=== PATIENT | male | born 1945 | race Hispanic/Latino ===

== ENCOUNTER → 2017-05-07 | Day surgery (SDC) | payer MEDICARE, BC ==
[2017-04-15 12:28] LABS: BASOPHILS % 0.6 % (0.0-1.0); EOSINOPHILS # (AUTO) 0.1 (0.0-0.4); EOSINOPHILS % 1.1 % (0.0-6.0); HEMATOCRIT 41.3 % (38.2-49.6); HEMOGLOBIN 13.8 g/dL (14.0-18.0); LYMPHOCYTES # (AUTO) 2.5 (1.0-3.2); LYMPHOCYTES % 39.4 % (18.0-39.1); MEAN CORPUSCULAR HEMOGLOBIN 29.9 pg (28-32); MEAN CORPUSCULAR HGB CONC 33.4 g/dL (31-35); MEAN CORPUSCULAR VOLUME 89.6 fL (81-99); MONOCYTES # (AUTO) 0.4 (0.2-0.8); MONOCYTES % 6.4 % (4.4-11.3); NEUTROPHILS # (AUTO) 3.4 (2.1-6.9); NEUTROPHILS % 52.3 % (38.7-80.0); PLATELET COUNT 245 x10e3/uL (140-360); RED BLOOD COUNT 4.61 x10e6/uL (4.3-5.7); RED CELL DISTRIBUTION WIDTH 13.3 % (11.7-14.4)
[~2017-05-07] MED LIST: FAMOTIDINE20 MG PO; FENTANYL CITRATE/PF 100MCG/2 ML INJ ONE; LIDOCAINE HCL 2% LOCAL INJ 5 ML SDV VIAL INJ ONE; MIDAZOLAM HCL 2 MG/2 ML VIAL ONE; OTC COUGH PO; PROPOFOL IV EMULSION 10 MG/ML 50 ML VIAL ONE; VIT D PO; Z.0.NEXIUM40 MG PO
== END | disposition home or self-care (01) ==
LOC: OR 09:56
PROVIDERS: ATTEND Internal Medicine Gastroenterology
DX: Z12.11 Encounter for screening for malignant neoplasm of colon (principal); D12.4 Benign neoplasm of descending colon; K64.2 Third degree hemorrhoids; K21.9 Gastro-esophageal reflux disease without esophagitis; E78.5 Hyperlipidemia, unspecified; R03.0 Elevated blood-pressure reading, without diagnosis of hypertension; Z01.810 Encounter for preprocedural cardiovascular examination; Z01.812 Encounter for preprocedural laboratory examination
CPT/HCPCS: 36415; 45384; 85025; 88305; 93005; J2001; J2250

== ENCOUNTER → 2018-01-21 | Day surgery (SDC) | payer MEDICARE, BC ==
[~2018-01-21] MED LIST changes: -LIDOCAINE HCL 2% LOCAL INJ 5 ML SDV VIAL INJ ONE
[2018-01-21 11:05] VITALS: BP 114/66
--- OUTSIDE RECORDS SUMMARY | 2018-01-21 14:33 | XMS REPORT ---
Author Author Doug Hussein [facility] eClinicalWorks Address Unknown Phone Unavailable Care Team Providers Care Production Line Manager Name Role Phone Doug Hussein CP Unavailable Allergies, Adverse Reactions, Alerts Substance Reaction Event Type N.K.D.A. 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 Active Problem Cardiomyopathy, unspecified type I42.9 Active Assessment GERD (gastroesophageal reflux disease) K21.9 Active Assessment Allergic sinusitis J30.9 Active Assessment Cough R05 Active Medications Medication Code System Code Instructions Start Date End Date Status Dosage Propranolol HCl ND 60621505874 20 mg Orally Twice a day July 22, 2017 Active 1 tablet Aspirin 81 mg Tab NDC 0 Active not defined Nexium ND 77126748421 40 MG Orally Once a day Active 1 capsule Pepcid ND 88144584102 40 MG Active TAKE 1 TABLET BY MOUTH 2 TIMES A DAY AT BEDTIME Medrol (Trey) NDC 0 4 mg Orally as directed October 18, 2017 October 24, 2017 Active as directed Crestor ND 05420090098 40 mg Orally Once a day Active 1 tablet Delsym [facility] [address]-87 30 MG/5ML Orally as needed (prn) Active 10 ml as needed Robitussin 12 Hour Cough NDC 81328160874 30 MG/5ML Orally every 12 hrs Active 10 ml as needed Tessalon Per[place] ND 25230096778 100 mg Orally Three times a day October 18, 2017 October 28, 2017 Active 1 capsule as needed Vital Signs Date/Time: October 18, 2017 BMI 21.47 Index Weight 137.1 lbs Height 67.0 in Temperature 99.0 F Cardiac Monitoring Heart Rate 85 /min Blood Pressure Diastolic 70 mm Hg Blood Pressure Systolic 121 mm Hg Results Name Result Date Reference Range Unit Abnormality Flag Sinus paranasal series Chest 2 views Summary Purpose eClinicalWorks Submission
--- OUTSIDE RECORDS SUMMARY | 2018-01-21 14:33 | XMS REPORT ---
Author Author Doug Hussein [facility] eClinicalWorks Address Unknown Phone Unavailable Care Team Providers Care Outside Salesman Name Role Phone Doug Hussein CP Unavailable Allergies No Known Allergies Problems Problem Type Condition Code Onset Dates Condition Status Problem GERD (gastroesophageal reflux disease) K21.9 Active Problem Occlusion and stenosis of unspecified carotid artery I65.29 Active Problem Other and unspecified hyperlipidemia E78.5 Active Problem Benign essential hypertension I10 Active Medications Medication Code System Code Instructions Start Date End Date Status Dosage Nexium [facility] [address]-22 40 MG Orally Once a day Active 1 capsule Results No Known Results Summary Purpose eClinicalWorks Submission
--- OUTSIDE RECORDS SUMMARY | 2018-01-21 14:33 | XMS REPORT ---
Author Author Doug Hussein Organization eClinicalWorks Address Unknown Phone Unavailable Care Team Providers Care Wastewater Project Manager Name Role Phone Doug Hussein CP Unavailable Allergies No Known Allergies Problems Problem Type Condition Code Onset Dates Condition Status Problem Tremor of right hand R25.1 Active Problem Other and unspecified hyperlipidemia E78.5 Active Problem Cardiomyopathy, unspecified type I42.9 Active Problem Benign essential hypertension I10 Active Assessment Cardiomyopathy, unspecified type I42.9 Active Problem GERD (gastroesophageal reflux disease) K21.9 Active Problem Occlusion and stenosis of unspecified carotid artery I65.29 Active Medications No Known Medications Results No Known Results Summary Purpose eClinicalWorks Submission
--- OUTSIDE RECORDS SUMMARY | 2018-01-21 14:33 | XMS REPORT ---
Author Author Doug Hussein Organization eClinicalWorks Address Unknown Phone Unavailable Care Team Providers Care Ophthalmic Medical Technician Name Role Phone Doug Hussein CP Unavailable Allergies No Known Allergies Problems Problem Type Condition Code Onset Dates Condition Status Assessment Occlusion and stenosis of bilateral carotid arteries I65.23 Active Problem Cardiomyopathy, unspecified type I42.9 Active Problem Tremor of right hand R25.1 Active Problem Occlusion and stenosis of bilateral carotid arteries I65.23 Active Problem Occlusion and stenosis of unspecified carotid artery I65.29 Active Problem Benign essential hypertension I10 Active Problem Other and unspecified hyperlipidemia E78.5 Active Problem GERD (gastroesophageal reflux disease) K21.9 Active Medications Medication Code System Code Instructions Start Date End Date Status Dosage Aspirin 81 mg Tab NDC 0 Active not defined Nexium ND 11804896439 40 MG Orally Once a day Active 1 capsule Pepcid ND 93720928626 40 MG Active TAKE 1 TABLET BY MOUTH 2 TIMES A DAY AT BEDTIME Crestor ND 54207521344 40 mg Orally Once a day Active 1 tablet Results No Known Results Summary Purpose eClinicalWorks Submission
--- OUTSIDE RECORDS SUMMARY | 2018-01-21 14:33 | XMS REPORT ---
Author Author Doug Hussein Organization eClinicalWorks Address Unknown Phone Unavailable Care Team Providers Care Irrigation Pump Installer Name Role Phone Doug Hussein CP Unavailable Allergies, Adverse Reactions, Alerts Substance Reaction Event Type N.K.D.A. Info Not Available Non Drug Allergy Encounters Encounter Location Date Unknown [facility] August 20, 2014 ANNUAL PHYSICAL [facility] August 17, 2014 Unknown [facility] August 25, 2014 ECHO [facility] Feb 02, 2014 CAROTID DOPPLER [facility] Feb 09, 2014 AAA SCREEEN [facility] Feb 16, 2014 Problems Problem Type Condition ICD-9 Code Onset Dates Condition Status Problem Pure hypercholesterolemia 272.0 Active Problem Hyperlipidemia 272.4 Active Problem Essential hypertension 401.9 Active Assessment GERD (gastroesophageal reflux disease) 530.81 Active Assessment Essential hypertension 401.9 Active Assessment Pure hypercholesterolemia 272.0 Active Medications Medication Code System Code Instructions Start Date End Date Status Dosage Nexium [facility] [address]-87 40 MG Orally Once a day Active 1 capsule Crestor [facility] [address]-85 40 mg Orally Once a day Active 1 tablet [facility] [address]-13 40 mg Orally twice a day (bid) August 17, 2014 Active 1 tablet at bedtime Aspirin 81 mg Tab Unknown 0 Active Unknown Lisinopril [facility] [address]-28 5 MG Orally Once a day August 17, 2014 Active 1 tablet Social History Social History Element Qualifiers Date Reported Tobacco Use: . Are you a: former smoker, How much do you smoke? Less than half of a pack per day, Pack Years 100, What year did you quit? 2004 August 17, 2014 Use of recreational / street drugs? . Answer: No August 17, 2014 Marital Status: . August 17, 2014 Do you drink alcohol? . Status: Yes, Type: Beer, How Often? Socially, Quantity: 1 August 17, 2014 Vital Signs Date/Time: August 17, 2014 Weight 147.9 lbs Height 67.0 in Temperature 98.1 F Cardiac Monitoring Heart Rate 71 /min Blood Pressure Diastolic 73 mm Hg Blood Pressure Systolic 150 mm Hg Results CBC w/ Auto Diff and Platelet MPV(-7.4-10.4 fl) 10.3 Hgb(-14.0-18.0 g/dL) 15.2 Hct(-42.0-54.0 %) 45.9 MCV(-80.0-94.0 fl) 92.8 MCH(-27.0-31.0 pg) 30.7 MCHC(-32.0-36.0 g/dL) 33.0 RDW(-11.5-14.5 %) 15.1 Platelet(-133-450 K/CMM) 129 WBC(-3.7-10.4 K/CMM) 6.5 RBC(-4.70-6.10 M/CMM) 4.94 Auto Diff Basophils(-0.0-1.0 %) 0.5 Eosinophils(-0.0-4.0 %) 1.0 Lymphocytes #(-1.0-5.5 K/CMM) 2.5 Segs-Bands #(-1.5-8.1 K/CMM) 3.6 Segs(-45.0-75.0 %) 54.3 Lymphocytes(-20.0-40.0 %) 38.6 Monocytes(-2.0-12.0 %) 5.6 Basophils #(-0.0-0.2 K/CMM) 0.0 Monocytes #(-0.0-0.8 K/CMM) 0.4 Eosinophils #(-0.0-0.5 K/CMM) 0.1 CMP (Comprehensive Metabolic Panel) ALT(-0-65 U/L) 29 Calcium Lvl(-8.5-10.5 mg/dL) 9.6 Alk Phos(-39-136 U/L) 83 AST(-0-37 U/L) 22 B/C Ratio(-6-25 ) 12 BUN(-7-22 mg/dL) 13 eGFR(- mL/min/1.73m2) 69 Creatinine Lvl(-0.5-1.4 mg/dL) 1.1 Glucose Lvl(-70-99 mg/dL) 89 AGAP(-10.0-20.0 mEq/L) 15.3 Albumin Lvl(-3.5-5.0 g/dL) 4.2 Total Protein(-6.4-8.4 g/dL) 8.3 A/G Ratio(-0.7-1.6 ) 1.0 Globulin(-2.0-4.0 g/dL) 4.1 Sodium Lvl(-135-145 mEq/L) 138 Potassium Lvl(-3.5-5.1 mEq/L) 4.3 Chloride Lvl(-95-109 mEq/L) 105 CO2(-24-32 mEq/L) 22 Lipid Panel w/calculated LDL LDL (Calculated)(-<=99 mg/dL) 177 CHD Risk(-4.00-7.30 ) 4.96 Trig(-<=149 mg/dL) 127 HDL(->=61 mg/dL) 51 Chol(-<=199 mg/dL) 253 Summary Purpose eClinicalWorks Submission
--- OUTSIDE RECORDS SUMMARY | 2018-01-21 14:33 | XMS REPORT ---
Author Author Doug Hussein Organization eClinicalWorks Address Unknown Phone Unavailable Care Team Providers Care Butter Liquefier Name Role Phone Doug Hussein CP Unavailable Allergies, Adverse Reactions, Alerts Substance Reaction Event Type N.K.D.A. Info Not Available Non Drug Allergy Problems Problem Type Condition Code Onset Dates Condition Status Assessment Acute bronchitis, unspecified organism J20.9 Active Problem Occlusion and stenosis of unspecified carotid artery I65.29 Active Problem Benign essential hypertension I10 Active Problem Anorexia R63.0 Active Problem Occlusion and stenosis of bilateral carotid arteries I65.23 Active Problem Allergic sinusitis J30.9 Active Problem Other and unspecified hyperlipidemia E78.5 Active Problem GERD (gastroesophageal reflux disease) K21.9 Active Problem Cardiomyopathy, unspecified type I42.9 Active Problem Tremor of right hand R25.1 Active Assessment Anorexia R63.0 Active Assessment Other and unspecified hyperlipidemia E78.5 Active Assessment GERD (gastroesophageal reflux disease) K21.9 Active Medications Medication Code System Code Instructions Start Date End Date Status Dosage Delsym [facility] [address]-32 30 MG/5ML Orally as needed (prn) Active 10 ml as needed Crestor ND 36068634354 40 mg Orally Once a day Active 1 tablet Propranolol HCl ND 40198881877 20 mg Orally Twice a day July 22, 2017 Active 1 tablet Ceftin ND 96802153054 250 MG Orally Twice a day September 30, 2017 October 10, 2017 Active 1 tablet Aspirin 81 mg Tab NDC 0 Active not defined Nexium ND 99683764986 20 MG Orally Once a day Active 1 capsule Pepcid ND 98367625110 40 MG Active TAKE 1 TABLET BY MOUTH 2 TIMES A DAY AT BEDTIME Vital Signs Date/Time: September 30, 2017 BMI 21.49 Index Weight 137.2 lbs Height 67.0 in Temperature 98.5 F Cardiac Monitoring Heart Rate 96 /min Blood Pressure Diastolic 73 mm Hg Blood Pressure Systolic 144 mm Hg Results No Known Results Summary Purpose eClinicalWorks Submission
--- OUTSIDE RECORDS SUMMARY | 2018-01-21 14:33 | XMS REPORT ---
Author Author Doug Hussein Organization eClinicalWorks Address Unknown Phone Unavailable Care Team Providers Care Electrolytic Etcher Name Role Phone Doug Hussein Unavailable Encounters Encounter Location Date Unknown [facility] August 20, 2014 ANNUAL PHYSICAL [facility] August 17, 2014 Unknown [facility] August 25, 2014 ECHO [facility] Feb 02, 2014 CAROTID DOPPLER [facility] Feb 09, 2014 AAA SCREEEN [facility] Feb 16, 2014 Problems Problem Type Condition ICD-9 Code Onset Dates Condition Status Problem Pure hypercholesterolemia 272.0 Active Problem Hyperlipidemia 272.4 Active Problem Essential hypertension 401.9 Active Assessment Hyperlipidemia 272.4 Active Social History Social History Element Qualifiers Date Reported Tobacco Use: . Are you a: former smoker, How much do you smoke? Less than half of a pack per day, Pack Years 100, What year did you quit? 2003August 17, 2014 Use of recreational / street drugs? . Answer: No August 17, 2014 Marital Status: . August 17, 2014 Do you drink alcohol? . Status: Yes, Type: Beer, How Often? Socially, Quantity: 1 August 17, 2014 Summary Purpose eClinicalWorks Submission
--- OUTSIDE RECORDS SUMMARY | 2018-01-21 14:33 | XMS REPORT ---
Author Author Doug Hussein Organization eClinicalWorks Address Unknown Phone Unavailable Care Team Providers Care Hematology Technician Name Role Phone Doug Hussein Unavailable Encounters Encounter Location Date ECHO [facility] Feb 02, 2014 CAROTID DOPPLER [facility] Feb 09, 2014 AAA SCREEEN [facility] Feb 16, 2014 Problems Problem Type Condition ICD-9 Code Onset Dates Condition Status Assessment Carotid stenosis 433.10 Active Problem Hyperlipidemia 272.4 Active Social History Social History Element Qualifiers Date Reported Tobacco Use: . Are you a: former smoker, How much do you smoke? Less than half of a pack per day, Pack Years 100, What year did you quit? 2003Jan 21, 2014 Use of recreational / street drugs? . Answer: No Jan 21, 2014 Marital Status: . Jan 21, 2014 Do you drink alcohol? . Status: Yes, Type: Beer, How Often? Socially, Quantity: 1 Jan 21, 2014 Summary Purpose eClinicalWorks Submission
--- OUTSIDE RECORDS SUMMARY | 2018-01-21 14:33 | XMS REPORT ---
Author Author Doug Hussein [facility] eClinicalWorks Address Unknown Phone Unavailable Care Team Providers Care Counselor Marriage And Family Name Role Phone Doug Hussein CP Unavailable [...] GERD (gastroesophageal reflux disease) K21.9 Active Assessment Benign essential hypertension I10 Active Assessment Bronchitis, allergic, unspecified asthma severity, uncomplicated J45.909 Active Assessment Seasonal allergic rhinitis, unspecified trigger J30.2 Active Medications Medication Code System Code Instructions Start Date End Date Status Dosage Nexium ND 79423403240 40 MG Orally Once a day Active 1 capsule Propranolol HCl ND 90627347762 20 mg Orally Twice a day July 22, 2017 Active 1 tablet Nasacort AQ NDC 0 55 MCG/ACT Nasally Once a day Nov 06, 2017 Active 1 puff in each nostril Singulair ND 96682533327 10 mg Orally Once a day Nov 06, 2017 Active 1 tablet in the evening Robitussin 12 Hour Cough NDC 98736210867 30 MG/5ML Orally every 12 hrs Active 10 ml as needed Crestor ND 74996190140 40 mg Orally Once a day Active 1 tablet Xyzal ND 57428281676 5 MG Orally Once a day Nov 06, 2017 Jan 05, 2018 Active 1 tablet in the evening Aspirin 81 mg Tab NDC 0 Active not defined Astelin NDC 0 137 MCG/SPRAY Nasally qhs Nov 06, 2017 Active 1 puff in each nostril Pepcid [facility] 67477009087 40 MG Active TAKE 1 TABLET BY MOUTH 2 TIMES A DAY AT BEDTIME Delsym [facility] [address]-79 30 MG/5ML Orally as needed (prn) Active 10 ml as needed Vital Signs Date/Time: Nov 06, 2017 BMI 21.27 Index Weight 135.8 lbs Height 67.0 in Temperature 98.0 F Cardiac Monitoring Heart Rate 82 /min Blood Pressure Diastolic 73 mm Hg Blood Pressure Systolic 147 mm Hg Results No Known Results Summary Purpose eClinicalWorks Submission
--- OUTSIDE RECORDS SUMMARY | 2018-01-21 14:33 | XMS REPORT ---
Author Author Doug Hussein [facility] eClinicalWorks Address Unknown Phone Unavailable Care Team Providers Care Computer Repair Technician Name Role Phone Doug Hussein CP [...] Problem Cardiomyopathy, unspecified type I42.9 Active Assessment Other and unspecified hyperlipidemia E78.5 Active Assessment GERD (gastroesophageal reflux disease) K21.9 Active Assessment Benign essential hypertension I10 Active Assessment Bronchitis, allergic, unspecified asthma severity, uncomplicated J45.909 Active Medications Medication Code System Code Instructions Start Date End Date Status Dosage Nexium [facility] 71625736978 40 MG Orally Once a day Active 1 capsule Singulair [facility] 28489737426 10 mg Orally Once a day Nov 06, 2017 Active 1 tablet in the evening Robitussin 12 Hour Cough ND 11190630278 30 MG/5ML Orally every 12 hrs Active 10 ml as needed Crestor [facility] 20832666137 40 mg Orally Once a day Active 1 tablet Xyzal [facility] 39117621138 5 MG Orally Once a day Nov 06, 2017 Jan 05, 2018 Active 1 tablet in the evening Astelin ND 0 137 MCG/SPRAY Nasally qhs Nov 06, 2017 Active 1 puff in each nostril Propranolol HCl [facility] 33017402431 20 mg Orally Twice a day July 22, 2017 Active 1 tablet Aspirin 81 mg Tab NDC 0 Active not defined Delsym [facility] [address]-72 30 MG/5ML Orally as needed (prn) Active 10 ml as needed Pepcid NDC 75776052182 40 MG Active TAKE 1 TABLET BY MOUTH 2 TIMES A DAY AT BEDTIME Nasacort AQ NDC 0 55 MCG/ACT Nasally Once a day Nov 06, 2017 Active 1 puff in each nostril Vital Signs Date/Time: Dec 04, 2017 BMI 21.39 Index Weight 136.6 lbs Height 67.0 in Temperature 97.9 F Cardiac Monitoring Heart Rate 78 /min Blood Pressure Diastolic 72 mm Hg Blood Pressure Systolic 128 mm Hg Results No Known Results Summary Purpose eClinicalWorks Submission
--- OUTSIDE RECORDS SUMMARY | 2018-01-21 14:33 | XMS REPORT ---
Author Author Doug Hussein [facility] eClinicalWorks Address Unknown Phone Unavailable Care Team Providers Care Biofuels Plant Superintendent Name Role Phone Doug Hussein CP Unavailable Allergies, Adverse Reactions, Alerts Substance Reaction Event Type N.K.D.A. Info Not Available Non Drug Allergy Problems Problem Type Condition Code Onset Dates Condition Status Assessment Other and unspecified hyperlipidemia E78.5 Active Assessment Benign essential hypertension I10 Active Assessment GERD (gastroesophageal reflux disease) K21.9 Active Assessment Midline low back pain, unspecified chronicity, with sciatica presence unspecified M54.5 Active Assessment Tremor of right hand R25.1 Active Problem Cardiomyopathy, unspecified type I42.9 Active [...] Instructions Start Date End Date Status Dosage Pneumovax 23 [facility] 77973979328 25 MCG/0.5ML Injection as directed July 22, 2017 July 23, 2017 Active as directed Pepcid [facility] 79071683382 40 MG Active TAKE 1 TABLET BY MOUTH 2 TIMES A DAY AT BEDTIME Crestor [facility] 40097167735 40 mg Orally Once a day Active 1 tablet Nexium [facility] 56104432591 40 MG Orally Once a day Active 1 capsule Propranolol HCl [facility] 85619851847 20 mg Orally Twice a day July 22, 2017 Active 1 tablet Aspirin 81 mg Tab NDC 0 Active not defined Zostavax [facility] 69599353542 04984 UNT/0.65ML Subcutaneous as directed July 22, 2017 July 23, 2017 Active as directed Vital Signs Date/Time: July 22, 2017 BMI 22.44 Index Weight 143.3 lbs Height 67.0 in Temperature 97.3 F Cardiac Monitoring Heart Rate 72 /min Blood Pressure Diastolic 83 mm Hg Blood Pressure Systolic 154 mm Hg Results No Known Results Summary Purpose eClinicalWorks Submission
--- OUTSIDE RECORDS SUMMARY | 2018-01-21 14:33 | XMS REPORT ---
Author Author Doug Hussein Organization eClinicalWorks Address Unknown Phone Unavailable Care Team Providers Care Analysis Or Research Safety Inspector Name Role Phone Doug Hussein CP Unavailable Allergies, Adverse Reactions, Alerts Substance Reaction Event Type N.K.D.A. Info Not Available Non Drug Allergy Problems Problem Type Condition Code Onset Dates Condition Status Assessment Tremor of right hand R25.1 Active Assessment Benign essential hypertension I10 Active Problem Other and unspecified hyperlipidemia E78.5 Active Problem GERD (gastroesophageal reflux disease) K21.9 Active Problem Tremor of right hand R25.1 Active Assessment Other and unspecified hyperlipidemia E78.5 Active Assessment GERD (gastroesophageal reflux disease) K21.9 Active Problem Occlusion and stenosis of unspecified carotid artery I65.29 Active Problem Benign essential hypertension I10 Active Medications Medication Code System Code Instructions Start Date End Date Status Dosage Aspirin 81 mg Tab ND 0 Active not defined Nexium [facility] [address]-30 40 MG Orally Once a day Active 1 capsule Crestor [facility] [address]-79 40 mg Orally Once a day Active 1 tablet Pepcid [facility] 70220626044 40 MG Active TAKE 1 TABLET BY MOUTH 2 TIMES A DAY AT BEDTIME Vital Signs Date/Time: August 06, 2016 BMI 23.02 Index Weight 147.0 lbs Height 67.0 in Temperature 97.9 F Cardiac Monitoring Heart Rate 70 /min Blood Pressure Diastolic 79 mm Hg Blood Pressure Systolic 154 mm Hg Results No Known Results Summary Purpose eClinicalWorks Submission
--- OUTSIDE RECORDS SUMMARY | 2018-01-21 14:33 | XMS REPORT ---
Author Author Doug Husesin Organization eClinicalWorks Address Unknown Phone Unavailable Care Team Providers Care Communications Assistant Name Role Phone Doug Hussein CP Unavailable Allergies, Adverse Reactions, Alerts Substance Reaction Event Type N.K.D.A. Info Not Available Non Drug Allergy Problems Problem Type Condition Code Onset Dates Condition Status Assessment Other and unspecified hyperlipidemia E78.5 Active Assessment Occlusion and stenosis of unspecified carotid artery I65.29 Active Assessment GERD (gastroesophageal reflux disease) K21.9 Active Problem Other and unspecified hyperlipidemia E78.5 Active Problem GERD (gastroesophageal reflux disease) K21.9 Active Problem Tremor of right hand R25.1 Active Assessment Encounter for general adult medical examination with abnormal findings Z00.01 Active Assessment Benign essential hypertension I10 Active Problem Occlusion and stenosis of unspecified carotid artery I65.29 Active Problem Benign essential hypertension I10 Active Assessment Encounter for immunization Z23 Active Assessment BMI 22.0-22.9, adult Z68.22 Active Assessment Tremor of right hand R25.1 Active Medications Medication Code System Code Instructions Start Date End Date Status Dosage Prevnar 13 [facility] 70757696509 - Intramuscular as directed Mar 12, 2017 Mar 13, 2017 Active as directed Zostavax [facility] 23128728012 43691 UNT/0.65ML Subcutaneous as directed Mar 12, 2017 Mar 13, 2017 Active as directed Nexium [facility] 19010565576 40 MG Orally Once a day Active 1 capsule Pepcid [facility] 29662625334 40 MG Active TAKE 1 TABLET BY MOUTH 2 TIMES A DAY AT BEDTIME Aspirin 81 mg Tab NDC 0 Active not defined Crestor ND 08866720345 40 mg Orally Once a day Active 1 tablet Vital Signs Date/Time: Mar 12, 2017 BMI 22.47 Index Weight 143.5 lbs Height 67.0 in Temperature 97.8 F Cardiac Monitoring Heart Rate 73 /min Blood Pressure Diastolic 67 mm Hg Blood Pressure Systolic 135 mm Hg Results No Known Results Immunizations Vaccine Administration Date MCR INFLUENZA VACCINE Mar 12, 2017 Summary Purpose eClinicalWorks Submission
--- OUTSIDE RECORDS SUMMARY | 2018-01-21 14:33 | XMS REPORT ---
Author Author Doug Hussein [facility] [employer] Address Unknown Phone Unavailable Care Team Providers Care Parks And Recreation Manager Name Role Phone Doug Hussein CP [...] Problem Cardiomyopathy, unspecified type I42.9 Active Assessment Cardiomyopathy, unspecified type I42.9 Active Assessment Benign essential hypertension I10 Active Assessment Uvulitis K12.2 Active Medications Medication Code System Code Instructions Start Date End Date Status Dosage Robitussin 12 Hour Cough ND 50595155454 30 MG/5ML Orally every 12 hrs Active 10 ml as needed Crestor ND 57690880661 40 mg Orally Once a day Active 1 tablet Aspirin 81 mg Tab NDC 0 Active not defined Tessalon Perles [facility] [place] 83664644907 100 mg Orally Three times a day October 18, 2017 October 28, 2017 Active 1 capsule as needed Pepcid ND 25963996454 40 MG Active TAKE 1 TABLET BY MOUTH 2 TIMES A DAY AT BEDTIME Delsym [facility] [place] [address]-00 30 MG/5ML Orally as needed (prn) Active 10 ml as needed Propranolol HCl ND 79180283052 20 mg Orally Twice a day July 22, 2017 Active 1 tablet Medrol ND 81450434401 4 MG Orally daily October 28, 2017 November 03, 2017 Active as directed Nexium ND 21249653509 40 MG Orally Once a day Active 1 capsule Vital Signs Date/Time: October 28, 2017 BMI 21.17 Index Weight 135.2 lbs Height 67.0 in Cardiac Monitoring Heart Rate 85 /min Blood Pressure Diastolic 72 mm Hg Blood Pressure Systolic 132 mm Hg Results No Known Results Summary Purpose eClinicalWorks Submission
--- OUTSIDE RECORDS SUMMARY | 2018-01-21 14:33 | XMS REPORT ---
Author Author Doug Hussein Organization [employer] Address Unknown Phone Unavailable Care Team Providers Care Knowledge Manager Name Role Phone Doug Hussein CP Unavailable Allergies No Known Allergies Problems Problem Type Condition Code Onset Dates Condition Status Problem Cardiomyopathy, unspecified type I42.9 Active Problem [...] Instructions Start Date End Date Status Dosage Shingrix [facility] 55563132753 50 MCG Intramuscular as directed July 24, 2017 July 25, 2017 Active Inject Results No Known Results Summary Purpose eClinicalWorks Submission
--- OUTSIDE RECORDS SUMMARY | 2018-01-21 14:33 | XMS REPORT | Continuity of Care Document ---
Author Author [facility] Interface Address Unknown Phone Unavailable Problems Problem Status Onset Date Classification Date Reported Comments Source R13.10 / R49.00 Active 11/19/2017 [place] R05, J30.9 Active 10/18/2017 [facility] Tremor of right hand Active Problem 12/21/2017 2.16.840.1.649565.4.391.11.60513 Other and unspecified hyperlipidemia Active Problem 12/21/2017 2.16.840.1.817293.4.391.11.60609 Cardiomyopathy, unspecified type Active Problem 12/21/2017 2.16.840.1.858725.4.391.11.48585 Benign essential hypertension Active Problem 12/21/2017 2.16.840.1.554164.4.391.11.51535 GERD Active Problem 12/21/2017 2.16.840.1.531576.4.391.11.61777 Occlusion and stenosis of unspecified carotid artery Active Problem 12/21/2017 2.16.840.1.865313.4.391.11.20744 Acute bronchitis, unspecified organism Active Diagnosis 10/21/2017 2.16.840.1.753682.4.391.11.05599 Anorexia Active Problem 12/21/2017 2.16.840.1.531092.4.391.11.51230 Occlusion and stenosis of bilateral carotid arteries Active Problem 12/21/2017 2.16.840.1.188500.4.391.11.51936 Allergic sinusitis Active Problem 12/21/2017 2.16.840.1.505524.4.391.11.09977 Encounter for general adult medical examination with abnormal findings Active Diagnosis 03/16/2017 2.16.840.1.148482.4.391.11.23163 Encounter for immunization Active Diagnosis 03/16/2017 2.16.840.1.261178.4.391.11.29945 BMI 22.0-22.9, adult Active Diagnosis 03/16/2017 2.16.840.1.820001.4.391.11.87950 Midline low back pain, unspecified chronicity, with sciatica presence unspecified Active Diagnosis 07/25/2017 2.16.840.1.979773.4.391.11.57520 Carotid stenosis Active Diagnosis 02/25/2014 2.16.840.1.480385.4.391.11.89561 Hyperlipidemia Active Problem 08/26/2014 2.16.840.1.718048.4.391.11.51263 Pure hypercholesterolemia Active Problem 08/26/2014 2.16.840.1.723772.4.391.11.28593 Essential hypertension Active Diagnosis 02/09/2016 2.16.840.1.355995.4.391.11.01302 AAA Active Diagnosis 02/25/2014 2.16.840.1.579964.4.391.11.31463 Bronchitis, allergic, unspecified asthma severity, uncomplicated Active Problem 12/21/2017 2.16.840.1.942422.4.391.11.40691 Cough Active Diagnosis 11/09/2017 2.16.840.1.001420.4.391.11.60801 Uvulitis Active Diagnosis 11/09/2017 2.16.840.1.090910.4.391.11.11238 Seasonal allergic rhinitis, unspecified trigger Active Diagnosis 11/09/2017 2.16.840.1.813341.4.391.11.13193 Pure hypercholesterolemia Active Diagnosis 08/09/2015 2.16.840.1.370809.4.391.11.12800 Acute bronchitis Active Diagnosis 05/14/2015 2.16.840.1.234900.4.391.11.48540 GERD Active Diagnosis 08/23/2014 2.16.840.1.632261.4.391.11.46179 Body mass index 23.0-23.9, adult Active Diagnosis 02/09/2016 2.16.840.1.515246.4.391.11.19430 Encounter for general adult medical examination without abnormal findings Active Diagnosis 02/09/2016 2.16.840.1.555351.4.391.11.58974 COUGH Active [facility] ALLERGIC RHINITIS, UNSPECIFIED Active [facility] DYSPHAGIA, UNSPECIFIED Active [facility] Medications Medication Details Route Status Patient Instructions Ordering Provider Order Date Source Singulair 1 tablet in the evening Orally Active 10 mg Orally Once a day Keenan 11/06/2017 2.16.840.1.923391.4.391.11.48593 Xyzal 1 tablet in the evening Orally Active 5 MG Orally Once a day Keenan 11/06/2017 2.16.840.1.330348.4.391.11.18680 Astelin 1 puff in each nostril Nasally Active 137 MCG/SPRAY Nasally qhs Keenan 11/06/2017 2.16.840.1.043153.4.391..22137 Nasacort AQ 1 puff in each nostril Nasally Active 55 MCG/ACT Nasally Once a day Keenan 11/06/2017 2.16.840.1.686392.4.391.11.49246 Medrol as directed Orally Active 4 MG Orally daily Keenan 10/28/2017 2.16.840.1.264219.4.391.11.85989 Medrol (Trey) as directed Orally Active 4 mg Orally as directed Keenan 10/18/2017 2.16.840.1.327735.4.391.11.88519 Tessalon Perles 1 capsule as needed Orally Active 100 mg Orally Three times a day Keenan 10/18/2017 2.16.840.1.205482.4.391.11.30961 Ceftin 1 tablet Orally Active 250 MG Orally Twice a day Keenan 09/30/2017 2.16.840.1.636661.4.391.11.87938 Shingrix Inject Intramuscular Active 50 MCG Intramuscular as directed Ekenan 07/24/2017 2.16.840.1.263845.4.391.11.45283 Propranolol HCl 1 tablet Orally Active 20 mg Orally Twice a day Keenan 07/22/2017 2.16.840.1.531412.4.391.68 Pneumovax 23 as directed Injection Active 25 MCG/0.5ML Injection as directed Keenan 07/22/2017 2.16.840.1.829862.4.391. Zostavax as directed Subcutaneous Active 06020 UNT/0.65ML Subcutaneous as directed Keenan 07/22/2017 2.16.840.1.227014.4.391. Prevnar 13 as directed Intramuscular Active - Intramuscular as directed Keenan 03/12/2017 2.16.840.1.671987.4.391. Zostavax as directed Subcutaneous Active 15656 UNT/0.65ML Subcutaneous as directed Keenan 03/12/2017 2.16840.1.653844.4.391. Promethazine-DM 5 ml as needed Orally Active 6.25-15 MG/5ML Orally every 6 hrs Keenan 04/22/2015 2.16.840.1.059483.4.391. Ceftin 1 tablet Orally Active 250 MG Orally Twice a day Keenan 04/22/2015 2.16840.1.751194.4.391. Pepcid 1 tablet at bedtime Orally Active 40 mg Orally twice a day (bid) Keenan 08/17/2014 2.16840.1.331775.4.391. Lisinopril 1 tablet Orally Active 5 MG Orally Once a day Keenan 08/17/2014 2.16.840.1.494390.4.391. Delsym 10 ml as needed Orally Active 30 MG/5ML Orally as needed (prn) Keenan 840.1.970285.4.391. Crestor 1 tablet Orally Active 40 mg Orally Once a day Keenan 840.1.348332.4.391 Aspirin 81 mg Tab not defined NA Active Keenan 840.1.376909.4.391. Nexium 1 capsule Orally Active 20 MG Orally Once a day Keenan 840.1.508621.4.39168 Pepcid TAKE 1 TABLET BY MOUTH 2 TIMES A DAY AT BEDTIME NA Active 40 MG Keenan .840.1.341729.4.391.68 Nexium 1 capsule Orally Active 40 MG Orally Once a day Keenan 2.16840.1.500834.4.391.68 Crestor 1 tablet Orally Active 40 mg Orally Once a day Keenan .840.1.668603.4.391. Nexium 1 capsule Orally Active 40 MG Orally Once a day Keenan .840.1.296436.4.391. Pepcid TAKE 1 TABLET BY MOUTH 2 TIMES A DAY AT BEDTIME NA Active 40 MG Keenan 2.840.1.122783.4.391. Robitussin 12 Hour Cough 10 ml as needed Orally Active 30 MG/5ML Orally every 12 hrs Keenan .840.1.277262.4.391. Delsym 10 ml as needed Orally Active 30 MG/5ML Orally as needed (prn) Keenan .840.1.439845.4.391. Aspirin 81 mg Tab Unknown NA Active Keenan .840.1.848838.4.39168 Allergies, Adverse Reactions, Alerts Substance Category Reaction Severity Reaction type Status Date Reported Comments Source N.K.D.A. Adverse Reaction Info Not Available Adverse Reaction Active 12/04/2017.16840.1.495205.4.391.68 Immunizations Immunization Date Given Site Status Last Updated Comments Source [facility] INFLUENZA VACCINE 03/12/2017 completed .840.1.607255.4.391.68 FLU VACCINE NO PRESERV 3 & > 02/10/2016 completed .840.1.224900.4.391..01490 Results Order Name Results Value Reference Range Date Interpretation Comments Source Barium Swallow w Esophagus Function DX Barium Swallow w Esophagus Function DX Barium Swallow w Esophagus Function DX COMPARISON: None CLINICAL HISTORY: - R13.10 Dysphagia, unspecified,R49.0 Dysphonia. FL TIME 3.3 MIN, DOSE 39.09 MgY TECHNIQUE: Thin barium was utilized for recumbent prone oblique and LPO images. Thick barium was utilized for upright imaging of the esophagus and pharynx. Granola bar mixed with barium was given to evaluate motility with solids. FINDINGS: There is no significant delay in passage of the barium bolus from the pharynx into the esophagus. The cricopharyngeus relaxes normally. There is no evidence for cricopharyngeal bar or Zenker's diverticulum. Prone and LPO images of the esophagus reveal small to moderate size hiatal hernia at the GE junction approximately 5.5 cm in the craniocaudal dimension. There is moderate delay in clearance of barium from the esophagus to the stomach. Upright images with thick barium reveal mild delay in clearance of barium. There is mild narrowing of the esophagus immediately cephalad to the hernia. Subsequently 2 separate swallows of a small piece of granola bar and barium were fluoroscopically followed through the length of the esophagus. There is mild delay in passage of both solid boluses from the pharynx to the esophagus and subsequently into the stomach. Overhead image performed at the conclusion of the procedure reveals prompt passage of the barium from the stomach into the small bowel. IMPRESSION: Small to moderate size hiatal hernia is visualized at the GE junction. Mild narrowing of the esophagus is suggested immediately cephalad to the hernia. Correlation with endoscopy is recommended. Dzvf-oj-zokldnko nonspecific esophageal dysmotility. SL: DORCAS 11/22/2017 - - Read by: Austin Rodriguez MD Dictated Date/time: 11/25/17 13:52 Electronically Signed by: Austin Rodriguez MD 11/25/17 14:07 FINAL REPORT [facility] Sinus paranasal series DX Sinus paranasal series DX Clinical Indication: R05 Cough // J30.9 Allergic rhinitis, unspecified - R05 Cough // J30.9 Allergic rhinitis, unspecified Comparison: None FINDINGS: The 3 views of the sinuses show that the maxillary, ethmoid, sphenoid and frontal sinuses are clear without mucoperiosteal thickening or air fluid levels. There are no osseous abnormalities noted. The nasal septum is midline. The nasopharynx region is grossly unremarkable. The mastoid regions appear unremarkable. If there is further concern, sinus CT may be performed for complete assessment. IMPRESSION: Unremarkable examination of the paranasal sinuses. SL: [id number] 10/18/2017 - - Read by: Helen Barnes MD Dictated Date/time: 10/18/17 22:55 Electronically Signed by: Helen Barnes MD 10/18/17 22:55 FINAL REPORT [facility] Chest 2 views DX Chest 2 views DX Patient Name: LEONARD SCHAEFER : 1945; Age: 72 years y/o Male MR: [id number] * CHEST, 2 views HISTORY: R05 Cough //J30.9 Allergic rhinitis, unspecified - R05 Cough //J30.9 Allergic rhinitis, unspecified COMPARISON: None TECHNIQUE: Frontal and lateral radiographs of the chest were obtained. FINDINGS: The lungs are clear. There are no pleural effusions. The heart and pulmonary vasculature are within normal limits. There is osteopenia with accentuated dorsal kyphosis. No compression deformities are seen. The regional skeleton is unremarkable. IMPRESSION: 1. No active disease. 2. Osteopenia with accentuated dorsal kyphosis. SL: ALEJANDROENSTAL-PC 10/18/2017 - - Read by: Joshua De Anda MD Dictated Date/time: 10/18/17 19:36 Electronically Signed by: Joshua De Anda MD 10/18/17 19:36 FINAL REPORT [facility] Vital Signs Vital Sign Value Date Comments Source Weight 136.6 12/04/2017 2.16.840.1.942970.4.391.11.11784 Height 67.0 12/04/2017 2.16.840.1.822000.4.391.11.94157 Temperature Oral (F) 97.9 F 12/04/2017 2.16.840.1.116351.4.391.11.77153 Heart Rate 78 12/04/2017 2.16.840.1.191729.4.391.11.22153 Diastolic (mm Hg) 72 12/04/2017 2.16.840.1.674146.4.391.11.85089 Systolic (mm Hg) 128 12/04/2017 2.16.840.1.860187.4.391.11.31908 Weight 135.8 11/06/2017 2.16.840.1.647698.4.391.11.72121 Height 67.0 11/06/2017 2.16.840.1.853610.4.391.11.76826 Temperature Oral (F) 98.0 F 11/06/2017 2.16.840.1.779766.4.391.11.74340 Heart Rate 82 11/06/2017 2.16.840.1.676902.4.391.11.66534 Diastolic (mm Hg) 73 11/06/2017 2.16.840.1.007680.4.391.11.74022 Systolic (mm Hg) 147 11/06/2017 2.16.840.1.979293.4.391.11.74445 Weight 135.2 10/28/2017 2.16.840.1.693963.4.391.11.88241 Height 67.0 10/28/2017 2.16.840.1.131584.4.391.11.39433 Heart Rate 85 10/28/2017 2.16.840.1.710544.4.391.11.02677 Diastolic (mm Hg) 72 10/28/2017 2.16.840.1.508261.4.391.11.34875 Systolic (mm Hg) 132 10/28/2017 2.16.840.1.412083.4.391.11.01681 Weight 137.1 10/18/2017 2.16.840.1.130162.4.391.11.18399 Height 67.0 10/18/2017 2.16.840.1.982294.4.391.11.58992 Temperature Oral (F) 99.0 F 10/18/2017 2.16.840.1.519937.4.391.11.80742 Heart Rate 85 10/18/2017 2.16.840.1.831081.4.391.11.46174 Diastolic (mm Hg) 70 10/18/2017 2.16.840.1.471694.4.391.11.88072 Systolic (mm Hg) 121 10/18/2017 2.16.840.1.444369.4.391.11.82270 Weight 137.2 09/30/2017 2.16.840.1.887279.4.391.11.32146 Height 67.0 09/30/2017 2.16.840.1.546114.4.391.11.22171 Temperature Oral (F) 98.5 F 09/30/2017 2.16.840.1.322066.4.391.11.85751 Heart Rate 96 09/30/2017 2.16.840.1.876494.4.391.11.15091 Diastolic (mm Hg) 73 09/30/2017 2.16.840.1.475729.4.391.11.23457 Systolic (mm Hg) 144 09/30/2017 2.16.840.1.240218.4.391.11.93041 Weight 143.3 07/22/2017 2.16.840.1.552588.4.391.11.00603 Height 67.0 07/22/2017 2.16.840.1.007077.4.391.11.02948 Temperature Oral (F) 97.3 F 07/22/2017 2.16.840.1.853741.4.391.11.23746 Heart Rate 72 07/22/2017 2.16.840.1.461123.4.391.11.20350 Diastolic (mm Hg) 83 07/22/2017 2.16.840.1.717055.4.391.11.26512 Systolic (mm Hg) 154 07/22/2017 2.16.840.1.977803.4.391.11.59310 Weight 143.5 03/12/2017 2.16.840.1.535255.4.391.11.35812 Height 67.0 03/12/2017 2.16.840.1.521585.4.391.11.65856 Temperature Oral (F) 97.8 F 03/12/2017 2.16.840.1.000640.4.391.11.72660 Heart Rate 73 03/12/2017 2.16.840.1.688184.4.391.11.55271 Diastolic (mm Hg) 67 03/12/2017 2.16.840.1.717544.4.391.11.34306 Systolic (mm Hg) 135 03/12/2017 2.16.840.1.496222.4.391.11.62597 Weight 142.7 10/31/2016 2.16.840.1.434588.4.391.11.27962 Height 67.0 10/31/2016 2.16.840.1.411357.4.391.11.91009 Temperature Oral (F) 98.1 F 10/31/2016 2.16.840.1.683484.4.391.11.32584 Heart Rate 74 10/31/2016 2.16.840.1.090618.4.391.11.37847 Diastolic (mm Hg) 80 10/31/2016 2.16.840.1.480200.4.391.11.14762 Systolic (mm Hg) 153 10/31/2016 2.16.840.1.143000.4.391.11.16065 Weight 147.0 08/06/2016 2.16.840.1.341813.4.391.11.09795 Height 67.0 08/06/2016 2.16.840.1.137838.4.391.11.26146 Temperature Oral (F) 97.9 F 08/06/2016 2.16.840.1.367697.4.391.11.27871 Heart Rate 70 08/06/2016 2.16.840.1.144694.4.391.11.82311 Diastolic (mm Hg) 79 08/06/2016 2.16.840.1.510969.4.391.11.91833 Systolic (mm Hg) 154 08/06/2016 2.16.840.1.078085.4.391.11.34306 Weight 147.0 02/06/2016 2.16.840.1.031028.4.391.11.56060 Height 67.0 02/06/2016 2.16.840.1.283657.4.391.11.68551 Temperature Oral (F) 97.8 F 02/06/2016 2.16.840.1.006472.4.391.11.92179 Heart Rate 74 02/06/2016 2.16.840.1.039603.4.391.11.49082 Diastolic (mm Hg) 73 02/06/2016 2.16.840.1.635021.4.391.11.07428 Systolic (mm Hg) 138 02/06/2016 2.16.840.1.035401.4.391.11.28726 Weight 147.3 08/05/2015 2.16.840.1.043870.4.391.11.33348 Height 67.0 08/05/2015 2.16.840.1.242467.4.391.11.68446 Temperature Oral (F) 97.9 F 08/05/2015 2.16.840.1.272735.4.391.11.07842 Heart Rate 75 08/05/2015 2.16.840.1.486608.4.391.11.10152 Diastolic (mm Hg) 83 08/05/2015 2.16.840.1.973318.4.391.11.01881 Systolic (mm Hg) 150 08/05/2015 2.16.840.1.313885.4.391.11.65749 Weight 149.0 04/22/2015 2.16.840.1.609317.4.391.11.35256 Height 67.0 04/22/2015 2.16.840.1.927185.4.391.11.09218 Temperature Oral (F) 98.6 F 04/22/2015 2.16.840.1.133585.4.391.11.52375 Heart Rate 90 04/22/2015 2.16.840.1.119396.4.391.11.06584 Diastolic (mm Hg) 82 04/22/2015 2.16.840.1.761024.4.391.11.95422 Systolic (mm Hg) 149 04/22/2015 2.16.840.1.015299.4.391.11.69399 Weight 147.9 08/17/2014 2.16.840.1.487928.4.391.11.11507 Height 67.0 08/17/2014 2.16.840.1.014392.4.391.11.99467 Temperature Oral (F) 98.1 F 08/17/2014 2.16.840.1.505557.4.391.11.94118 Heart Rate 71 08/17/2014 2.16.840.1.254747.4.391.11.64554 Diastolic (mm Hg) 73 08/17/2014 2.16.840.1.674610.4.391.11.64056 Systolic (mm Hg) 150 08/17/2014 2.16.840.1.323783.4.391.11.29367 Encounters Location Location Details Encounter Type Encounter Number Reason For Visit Attending Provider ADM Date DC Date Status Source [facility] ECHO [id number] 02/02/2014 02/02/2014 2.16.840.1.872530.4.391.11.33429 [facility] ECHO [id number] 02/02/2014 02/02/2014 2.16.840.1.088553.4.391.11.61341 [facility] ECHO [id number] 02/02/2014 02/02/2014 2.16.840.1.242862.4.391.11.41758 [facility] ECHO [id number] 02/02/2014 02/02/2014 2.16.840.1.115235.4.391.11.06580 [facility] ECHO [id number] 02/02/2014 02/02/2014 2.16.840.1.672519.4.391.11.17815 [facility] ECHO [id number] 02/02/2014 02/02/2014 2.16.840.1.289143.4.391.11.26060 [facility] ECHO [id number] 02/02/2014 02/02/2014 2.16.840.1.161945.4.391.11.12697 [facility] ECHO [id number] 02/02/2014 02/02/2014 2.16.840.1.045677.4.391.11.41498 [facility] ECHO [id number] 02/02/2014 02/02/2014 2.16.840.1.763406.4.391.11.10522 [facility] [employer] [id number] 02/09/2014 02/09/2014 2.16.840.1.014670.4.391.11.13813 [facility] [employer] [id number] 02/09/2014 02/09/2014 2.16.840.1.539445.4.391.11.98454 [facility] [employer] [id number] 02/09/2014 02/09/2014 2.16.840.1.459278.4.391.11.11796 [facility] [employer]ER [id number] 02/09/2014 02/09/2014 2.16.840.1.712375.4.391.11.21288 [facility] [employer] [id number] 02/09/2014 02/09/2014 2.16.840.1.343532.4.391.11.20030 [facility] [employer] [id number] 02/09/2014 02/09/2014 2.16.840.1.179657.4.391.11.09964 [facility] [employer] [id number] 02/09/2014 02/09/2014 2.16.840.1.754199.4.391.11.47327 [facility] [employer] [id number] 02/09/2014 02/09/2014 2.16.840.1.333201.4.391..39972 [facility] [employer] [id number] 02/09/2014 02/09/2014 2.16.840.1.595678.4.391.11.43595 [facility] [employer] [id number] 02/16/2014 02/16/2014 2.16.840.1.795963.4.391..97380 [facility] [employer] [id number] 02/16/2014 02/16/2014 2.16.840.1.353879.4.391..45157 [facility] [employer] [id number] 02/16/2014 02/16/2014 2.16.840.1.690606.4.391..94352 [facility] [employer] [id number] 02/16/2014 02/16/2014 2.16.840.1.138867.4.391.11.53380 [facility] [employer] [id number] 02/16/2014 02/16/2014 2.16.840.1.656972.4.391..08560 [facility] [employer] [id number] 02/16/2014 02/16/2014 2.16.840.1.182065.4.391..58908 [facility] [employer] [id number] 02/16/2014 02/16/2014 2.16.840.1.454845.4.391..81940 [facility] [employer] [id number] 02/16/2014 02/16/2014 2.16.840.1.266792.4.391..87911 [facility] [employer] [id number] 02/16/2014 02/16/2014 2.16.840.1.796695.4.391..56648 [facility] ANNUAL PHYSICAL [id number] 08/17/2014 08/17/2014 2.16.840.1.878507.4.391..84338 [facility] ANNUAL PHYSICAL [id number] 08/17/2014 08/17/2014 2.16.840.1.373343.4.391..09903 [facility] ANNUAL PHYSICAL [id number] 08/17/2014 08/17/2014 2.16.840.1.508966.4.391.68 [facility] ANNUAL PHYSICAL [id number] 08/17/2014 08/17/2014 2.16.840.1.570746.4.391.11.79252 [facility] ANNUAL PHYSICAL [id number] 08/17/2014 08/17/2014 2.16.840.1.183891.4.391.11.51269 [facility] ANNUAL PHYSICAL [id number] 08/17/2014 08/17/2014 2.16.840.1.128024.4.391.11.16087 [facility] ANNUAL PHYSICAL [id number] 08/17/2014 08/17/2014 2.16.840.1.408464.4.391.11.14712 [facility] Unknown [id number] 08/20/2014 08/20/2014 2.16.840.1.896482.4.391.11.00542 [facility] Unknown [id number] 08/20/2014 08/20/2014 2.16.840.1.165666.4.391.11.88858 [facility] Unknown [id number] 08/20/2014 08/20/2014 2.16.840.1.126733.4.391.11.05632 [facility] Unknown [id number] 08/20/2014 08/20/2014 2.16.840.1.131264.4.391.11.30261 [facility] Unknown [id number] 08/20/2014 08/20/2014 2.16.840.1.281637.4.391.11.54740 [facility] Unknown [id number] 08/20/2014 08/20/2014 2.16.840.1.434319.4.391.11.60488 [facility] Unknown [id number] 08/20/2014 08/20/2014 2.16.840.1.973175.4.391.11.14860 [facility] Unknown [id number] 08/25/2014 08/25/2014 2.16.840.1.286095.4.391.11.30067 [facility] Unknown [id number] 08/25/2014 08/25/2014 2.16.840.1.539498.4.391.11.49628 [facility] Unknown [id number] 08/25/2014 08/25/2014 2.16.840.1.687815.4.391.11.58330 [facility] Unknown [id number] 08/25/2014 08/25/2014 2.16.840.1.242809.4.391.11.63722 [facility] Unknown [id number] 08/25/2014 08/25/2014 2.16.840.1.122892.4.391.11.92421 [facility] Unknown [id number] 08/25/2014 08/25/2014 2.16.840.1.591087.4.391.11.96887 [facility] Unknown [id number] 08/25/2014 08/25/2014 2.16.840.1.868320.4.391.11.30922 [facility] PHYSICAL [id number] 01/17/2015 01/17/2015 2.16.840.1.098156.4.391.11.99664 [facility] PHYSICAL [id number] 01/17/2015 01/17/2015 2.16.840.1.563300.4.391.11.15254 [facility] PHYSICAL [id number] 01/17/2015 01/17/2015 2.16.840.1.744238.4.391.11.53881 [facility] PHYSICAL [id number] 01/17/2015 01/17/2015 2.16.840.1.323429.4.391.11.01627 [facility] CAROTID DOPPLER [id number] 01/25/2015 01/25/2015 2.16.840.1.546823.4.391.11.88988 [facility] CAROTID DOPPLER [id number] 01/25/2015 01/25/2015 2.16.840.1.490153.4.391.11.64606 [facility] CAROTID DOPPLER [id number] 01/25/2015 01/25/2015 2.16.840.1.948603.4.391.11.23299 [facility] CAROTID DOPPLER [id number] 01/25/2015 01/25/2015 2.16.840.1.263364.4.391.11.87457 [facility] COUGH [id number] 04/22/2015 04/22/2015 2.16.840.1.179841.4.391.11.43888 [facility] COUGH [id number] 04/22/2015 04/22/2015 2.16.840.1.257959.4.391.11.54020 [facility] COUGH [id number] 04/22/2015 04/22/2015 2.16.840.1.951129.4.391.11.15831 [facility] COUGH [id number] 04/22/2015 04/22/2015 2.16.840.1.508887.4.391.11.37879 [facility] 6 month f/u [id number]-k876-[id number] 08/05/2015 08/05/2015 2.16.840.1.368060.4.391.11.02167 [facility] 6 month f/u [id number] 08/05/2015 08/05/2015 2.16.840.1.185846.4.391.11.37519 [facility] 6 month f/u [id number] 08/05/2015 08/05/2015 2.16.840.1.762813.4.391.11.66811 [facility] 6 month f/u [id number] 02/06/2016 02/06/2016 2.16.840.1.556555.4.391.11.52090 [facility] 6 month f/u [id number]-[id number] 02/06/2016 02/06/2016 2.16.840.1.053964.4.391.11.52809 [facility] flu injection only [id number] 02/10/2016 02/10/2016 2.16.840.1.089091.4.391.11.99439 [facility] [facility] [id number] Doug Hussein 10/18/2017 10/19/2017 [facility] Procedures Procedure Code Date Perfomer Comments Source
--- OUTSIDE RECORDS SUMMARY | 2018-01-21 14:33 | XMS REPORT ---
Author Author Doug Hussein Organization [employer] Address Unknown Phone Unavailable Care Team Providers Care Associate Justice Name Role Phone Doug Hussein Unavailable Encounters Encounter Location Date ECHO [facility] Feb 02, 2014 CAROTID DOPPLER [facility] Feb 09, 2014 AAA SCREEEN [facility] Feb 16, 2014 Problems Problem Type Condition ICD-9 Code Onset Dates Condition Status Assessment AAA (abdominal aortic aneurysm) 441.4 Active Problem Hyperlipidemia 272.4 Active Social History Social History Element Qualifiers Date Reported Tobacco Use: . Are you a: former smoker, How much do you smoke? Less than half of a pack per day, Pack Years 100, What year did you quit? 2004 Jan 21, 2014 Use of recreational / street drugs? . Answer: No Jan 21, 2014 Marital Status: . Jan 21, 2014 Do you drink alcohol? . Status: Yes, Type: Beer, How Often? Socially, Quantity: 1 Jan 21, 2014 Summary Purpose eClinicalWorks Submission
--- OUTSIDE RECORDS SUMMARY | 2018-01-21 14:33 | XMS REPORT ---
Author Author Doug Hussein [facility] eClinical[employer] Address Unknown Phone Unavailable Care Team Providers Care Mission Manager Name Role Phone Doug Hussein CP Unavailable Allergies, Adverse Reactions, Alerts Substance Reaction Event Type N.K.D.A. Info Not Available Non Drug Allergy Problems Problem Type Condition Code Onset Dates Condition Status Assessment Tremor of right hand R25.1 Active Assessment GERD (gastroesophageal reflux disease) K21.9 Active Assessment Other and unspecified hyperlipidemia E78.5 Active Problem Other and unspecified hyperlipidemia E78.5 Active Problem GERD (gastroesophageal reflux disease) K21.9 Active Problem Tremor of right hand R25.1 Active Assessment Benign essential hypertension I10 Active Assessment Occlusion and stenosis of unspecified carotid artery I65.29 Active Problem Occlusion and stenosis of unspecified carotid artery I65.29 Active Problem Benign essential hypertension I10 Active Medications Medication Code System Code Instructions Start Date End Date Status Dosage Pepcid [facility] 80247155869 40 MG Active TAKE 1 TABLET BY MOUTH 2 TIMES A DAY AT BEDTIME Crestor [facility] [address]-11 40 mg Orally Once a day Active 1 tablet Nexium [facility] [address]-98 40 MG Orally Once a day Active 1 capsule Aspirin 81 mg Tab ND 0 Active not defined Vital Signs Date/Time: October 31, 2016 BMI 22.35 Index Weight 142.7 lbs Height 67.0 in Temperature 98.1 F Cardiac Monitoring Heart Rate 74 /min Blood Pressure Diastolic 80 mm Hg Blood Pressure Systolic 153 mm Hg Results No Known Results Summary Purpose eClinicalWorks Submission
--- OUTSIDE RECORDS SUMMARY | 2018-01-21 14:34 | XMS REPORT | Summary of Care ---
Author Author [facility] Organization [facility] Address Unknown Phone Unavailable Encounter HQ Encntr_alias(FIN) [id number] Date(s): 10/18/17 - 10/18/17 [facility] [id number] [place] [address]- Discharge Disposition: Home or Self Care Attending Physician: Doug Hussein MD Admitting Physician: Doug Hussein MD Vital Signs No data available for this section Problem List No data available for this section Allergies, Adverse Reactions, Alerts No data available for this section Medications No data available for this section Results No data available for this section Immunizations No data available for this section Procedures No data available for this section Social History No data available for this section Assessment and Plan No data available for this section
--- OUTSIDE RECORDS SUMMARY | 2018-01-21 14:34 | XMS REPORT ---
Author Author Doug Hussein [facility] eClinicalWorks Address Unknown Phone Unavailable Care Team Providers Care Superintendent Colliery Name Role Phone Doug Hussein CP Unavailable Encounters Encounter Location Date Unknown [facility] August 20, 2014 ANNUAL PHYSICAL [facility] August 17, 2014 Unknown [facility] August 25, 2014 PHYSICAL [facility] Jan 17, 2015 ECHO [facility] Feb 02, 2014 6 month f/u [facility] Feb 06, 2016 CAROTID DOPPLER [facility] Feb 09, 2014 flu injection only [facility] Feb 10, 2016 AAA SCREEEN [facility] Feb 16, 2014 6 month f/u [facility] August 05, 2015 CAROTID DOPPLER [facility] Jan 25, 2015 COUGH [facility] Apr 22, 2015 Problems Problem Type Condition ICD-9 Code Onset Dates Condition Status Problem GERD (gastroesophageal reflux disease) K21.9 Active Problem Occlusion and stenosis of unspecified carotid artery I65.29 Active Problem Other and unspecified hyperlipidemia E78.5 Active Problem Benign essential hypertension I10 Active Assessment Encounter for immunization Z23 Active Social History Social History Element Qualifiers Date Reported Do you take Aspirin, or a blood thinner . Yes I do take aspirin/ or a blood thinner Feb 06, 2016 Tobacco Use: . Are you a: former smoker, How much do you smoke? Less than half of a pack per day, Pack Years 100, What year did you quit? 2004 Feb 06, 2016 Use of recreational / street drugs? . Answer: No Feb 06, 2016 Marital Status: . Feb 06, 2016 Caffeine intake? . Status: Yes, What type: Coffee, Tea, Soft Drinks Feb 06, 2016 Do you exercise? . Answer: Yes, Type: walking Feb 06, 2016 Do you drink alcohol? . Status: Yes, Type: Beer, How Often? Socially, Quantity: 1 Feb 06, 2016 Travel outside [place]: no. no Feb 06, 2016 Occupation: . retired, aluminum welder Feb 06, 2016 Immunizations Vaccine Administration Date FLU VACCINE NO PRESERV 3 & > Feb 10, 2016 Summary Purpose eClinicalWorks Submission
--- OUTSIDE RECORDS SUMMARY | 2018-01-21 14:34 | XMS REPORT ---
Author Author Doug Hussein [facility] eClinicalWorks Address Unknown Phone Unavailable Care Team Providers Care Fire Supervisor Name Role Phone Doug Hussein Unavailable Allergies, Adverse Reactions, Alerts Substance Reaction Event Type N.K.D.A. Info Not Available Non Drug Allergy Encounters Encounter Location Date Unknown [facility] August 20, 2014 ANNUAL PHYSICAL [facility] August 17, 2014 Unknown [facility] August 25, 2014 PHYSICAL [facility] Jan 17, 2015 ECHO [facility] Feb 02, 2014 CAROTID DOPPLER [facility] Feb 09, 2014 AAA SCREEEN [facility] Feb 16, 2014 CAROTID DOPPLER [facility] Jan 25, 2015 COUGH [facility] Apr 22, 2015 Problems Problem Type Condition ICD-9 Code Onset Dates Condition Status Problem Benign essential hypertension I10 Active Problem Pure hypercholesterolemia E78.0 Active Problem Occlusion and stenosis of unspecified carotid artery I65.29 Active Assessment Pure hypercholesterolemia E78.0 Active Assessment Occlusion and stenosis of unspecified carotid artery I65.29 Active Assessment Acute bronchitis J20.9 Active Assessment Benign essential hypertension I10 Active Medications Medication Code System Code Instructions Start Date End Date Status Dosage Nexium [facility] [address]-63 40 MG Orally Once a day Active 1 capsule Promethazine-DM [facility] [address]-42 6.25-15 MG/5ML Orally every 6 hrs Apr 22, 2015 May 02, 2015 Active 5 ml as needed Aspirin 81 mg Tab Unknown 0 Active Unknown [facility] 70181670989 40 MG Active TAKE 1 TABLET BY MOUTH 2 TIMES A DAY AT BEDTIME Crestor [facility] [address]-12 40 mg Orally Once a day Active 1 tablet Ceftin [facility] [address]-01 250 MG Orally Twice a day Apr 22, 2015 May 02, 2015 Active 1 tablet Social History Social History Element Qualifiers Date Reported Tobacco Use: . Are you a: former smoker, How much do you smoke? Less than half of a pack per day, Pack Years 100, What year did you quit? 2003Apr 22, 2015 Use of recreational / street drugs? . Answer: No Apr 22, 2015 Marital Status: . Apr 22, 2015 Do you drink alcohol? . Status: Yes, Type: Beer, How Often? Socially, Quantity: 1 Apr 22, 2015 Travel outside [place]: no. no Apr 22, 2015 Vital Signs Date/Time: Apr 22, 2015 Weight 149.0 lbs Height 67.0 in Temperature 98.6 F Cardiac Monitoring Heart Rate 90 /min Blood Pressure Diastolic 82 mm Hg Blood Pressure Systolic 149 mm Hg Summary Purpose eClinicalWorks Submission
--- OUTSIDE RECORDS SUMMARY | 2018-01-21 14:34 | XMS REPORT ---
Author Author Doug Hussein [facility] eClinicalWorks Address Unknown Phone Unavailable Care Team Providers Care Gift Packer Name Role Phone Doug Hussein Unavailable Allergies, Adverse Reactions, Alerts Substance Reaction Event Type N.K.D.A. Info Not Available Non Drug Allergy Encounters Encounter Location Date Unknown [facility] August 20, 2014 ANNUAL PHYSICAL [facility] August 17, 2014 Unknown [facility] August 25, 2014 PHYSICAL [facility] Jan 17, 2015 ECHO [facility] Feb 02, 2014 6 month f/u [facility] Feb 06, 2016 CAROTID DOPPLER [facility] Feb 09, 2014 AAA SCREEEN [facility] Feb 16, 2014 6 month f/u [facility] August 05, 2015 CAROTID DOPPLER [facility] Jan 25, 2015 COUGH [facility] Apr 22, 2015 Problems Problem Type Condition ICD-9 Code Onset Dates Condition Status Assessment Other and unspecified hyperlipidemia E78.5 Active Assessment GERD (gastroesophageal reflux disease) K21.9 Active Assessment Body mass index (BMI) 23.0-23.9, adult Z68.23 Active Assessment Essential hypertension 401.9 Active Problem GERD (gastroesophageal reflux disease) K21.9 Active Problem Occlusion and stenosis of unspecified carotid artery I65.29 Active Problem Other and unspecified hyperlipidemia E78.5 Active Assessment Benign essential hypertension I10 Active Assessment Occlusion and stenosis of unspecified carotid artery I65.29 Active Problem Benign essential hypertension I10 Active Assessment Encounter for general adult medical examination without abnormal findings Z00.00 Active Medications Medication Code System Code Instructions Start Date End Date Status Dosage Nexium [facility] [address]-85 40 MG Orally Once a day Active 1 capsule Pepcid [facility] 33594341190 40 MG Active TAKE 1 TABLET BY MOUTH 2 TIMES A DAY AT BEDTIME Aspirin 81 mg Tab Unknown 0 Active Unknown Crestor [facility] [address]-67 40 mg Orally Once a day Active 1 tablet Social History Social History [...] no Feb 06, 2016 Occupation: . 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
--- OUTSIDE RECORDS SUMMARY | 2018-01-21 14:34 | XMS REPORT ---
Author Author Doug Hussein Organization [employer]Clinical[employer] Address Unknown Phone Unavailable Care Team Providers Care Manager Research Name Role Phone Doug Hussein Unavailable Encounters Encounter Location Date Unknown [facility] August 20, 2014 ANNUAL PHYSICAL [facility] August 17, 2014 Unknown [facility] August 25, 2014 ECHO [facility] Feb 02, 2014 CAROTID DOPPLER [facility] Feb 09, 2014 AAA SCREEEN [facility] Feb 16, 2014 Problems Problem Type Condition [...]
--- OUTSIDE RECORDS SUMMARY | 2018-01-21 14:34 | XMS REPORT ---
Author Author Doug Hussein [facility] eClinicalWorks Address Unknown Phone Unavailable Care Team Providers Care Child Care Aide Name Role Phone Doug Hussein Unavailable Allergies, Adverse Reactions, Alerts Substance Reaction Event Type N.K.D.A. Info Not Available Non Drug Allergy Encounters Encounter Location Date Unknown [facility] August 20, 2014 ANNUAL PHYSICAL [facility] August 17, 2014 Unknown [facility] August 25, 2014 PHYSICAL [facility] Jan 17, 2015 ECHO [facility] Feb 02, 2014 CAROTID DOPPLER [facility] Feb 09, 2014 AAA SCREEEN [facility] Feb 16, 2014 6 month f/u [facility] August 05, 2015 CAROTID DOPPLER [facility] Jan 25, 2015 COUGH [facility] Apr 22, 2015 Problems Problem Type Condition ICD-9 Code Onset Dates Condition Status Assessment GERD (gastroesophageal reflux disease) K21.9 Active Problem Occlusion and stenosis of unspecified carotid artery I65.29 Active Problem Benign essential hypertension I10 Active Problem GERD (gastroesophageal reflux disease) K21.9 Active Assessment Pure hypercholesterolemia E78.0 Active Assessment Occlusion and stenosis of unspecified carotid artery I65.29 Active Problem Pure hypercholesterolemia E78.0 Active Assessment Benign essential hypertension I10 Active Medications Medication Code System Code Instructions Start Date End Date Status Dosage [facility] 33665534541 40 MG Active TAKE 1 TABLET BY MOUTH 2 TIMES A DAY AT BEDTIME Aspirin 81 mg Tab Unknown 0 Active Unknown Crestor [facility] [address]-88 40 mg Orally Once a day Active 1 tablet Social History Social History Element Qualifiers Date Reported Tobacco Use: . Are you a: former smoker, How much do you smoke? Less than half of a pack per day, Pack Years 100, What year did you quit? 2003August 05, 2015 Use of recreational / street drugs? . Answer: No August 05, 2015 Marital Status: . August 05, 2015 Do you drink alcohol? . Status: Yes, Type: Beer, How Often? Socially, Quantity: 1 August 05, 2015 Travel outside [place]: no. no August 05, 2015 Occupation: . 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
== END | disposition home or self-care (01) ==
LOC: OR 05:56
PROVIDERS: ATTEND Internal Medicine Gastroenterology
DX: K21.0 Gastro-esophageal reflux disease with esophagitis (principal); K44.9 Diaphragmatic hernia without obstruction or gangrene; K29.50 Unspecified chronic gastritis without bleeding; E78.5 Hyperlipidemia, unspecified; G25.0 Essential tremor; Z01.810 Encounter for preprocedural cardiovascular examination
CPT/HCPCS: 43239; 88305; 88312; 93005; J2250